=== PATIENT | female | born 1970 | race Caucasian/White ===

== ENCOUNTER 2017-06-09 16:26 | Outpatient (CLI) | payer OTHER ==
--- NOTE | 2017-06-09 18:13 | Diagnostic Imaging Report ---
[facility] [address] [facility].[address] [address] Report Submission Date: Jun 09, 2017 5:18:58 PM CDT Patient Study Name: GEM CORADO Date: Jun 09, 2017 4:49:32 PM CDT Modality Type: CR Gender: F Description: LOWER EXTREMITY : 66 Institution: [facility] Physician: NOHEMY ALMANZA - OP Examination: Plain film foot History: Discomfort Findings: 3 views of the foot demonstrates normal cortical margins. No fracture or dislocation. Early degenerative is 1st metatarsophalangeal articulation. Inferior posterior calcaneal spurs. No soft tissue swelling. No joint effusion. Impression: Calcaneal spurs. No acute osseous process. Electronically signed on Jun 09, 2017 5:18:58 PM CDT by: Guillermo CORNEJO
== END 2017-06-09 16:28 ==
LOC: RAD 16:26
PROVIDERS: ATTEND Family Medicine
DX: M77.41 Metatarsalgia, right foot (principal)
CPT/HCPCS: 73630